=== PATIENT | male | born 1965 | race Caucasian/White ===

== ENCOUNTER 2017-03-31 00:54 | Emergency (ER) | payer SELFPAY ==
[~2017-03-31] VITALS: Ht 172.7 cm; Wt 72.6 kg
[2017-03-31 01:21] VITALS: BP 147/93
[2017-03-31] MEDS ORDERED: oxyCODONE/APAP (5/325 MG) 1 UDTAB TABLET PO ONE (01:30)
[2017-03-31] MEDS ORDERED: LORAZEPAM 1 MG TABLET PO ONE (01:30)
[2017-03-31] MEDS ORDERED: SULFAMETH/TRIMETH 800/160 MG 1 UDTAB TABLET PO ONE ×2 (01:30→01:47)
[2017-03-31] MEDS ORDERED: LORAZEPAM 1 MG TABLET ONE (01:47)
[2017-03-31] MEDS ORDERED: oxyCODONE/APAP (5/325 MG) 1 UDTAB TABLET ONE (01:47)
== END 2017-03-31 02:20 | disposition home or self-care (01) ==
LOC: ER 00:57
DX: L03.113 Cellulitis of right upper limb (principal); L03.114 Cellulitis of left upper limb; F15.10 Other stimulant abuse, uncomplicated; G47.00 Insomnia, unspecified
CPT/HCPCS: A4606; Z7610

== ENCOUNTER 2017-04-21 08:07 | Emergency (ER) | payer SELFPAY ==
[~2017-04-21] VITALS: Ht 170.2 cm; Wt 77.1 kg
--- NOTE | 2017-04-21 08:14 | NUR ---
ABRAMS TO TRIAGE BUT NO ANSWER
--- NOTE | 2017-04-21 08:32 | NUR ---
Called to triage, but no answer
--- NOTE | 2017-04-21 08:47 | NUR ---
STILL NOT IN WAITING ROOM
--- NOTE | 2017-04-21 08:54 | NUR ---
PATIET STILL NOT IN WAITING ROOM
[2017-04-21 08:57] VITALS: BP 148/106
--- NOTE | 2017-04-21 09:23 | NUR ---
PT REC;D TO ER C/O ACID REFLUV AWAITING EVALUATION BY ER PROVIDER.
== END 2017-04-21 09:38 | disposition left against medical advice (07) ==
LOC: ER 08:09
DX: Z53.21 Procedure and treatment not carried out due to patient leaving prior to being seen by health care provider (principal)
CPT/HCPCS: A4606; Z7610

== ENCOUNTER 2018-01-06 23:32 | Inpatient (IN) | payer OTHER ==
[~2018-01-06] VITALS: Ht 165.1 cm; Wt 64.0 kg
--- NOTE | 2018-01-06 23:50 | NUR ---
PT BIB RA AND PAM HAYNES [employer] FOR OK TO BOOK. PT IS YELLING AND C/O LEG AND KNEE PAIN. PT WENT TO BED #6 AND WAS HANDCUFFED TO THE BED. PT IS IN CUSTODY WITH PAM FLORES.
[2018-01-07] MEDS ORDERED: LORAZEPAM INJ 2 MG/ML VIAL IVP ONE
[2018-01-07] MEDS ORDERED: PANTOPRAZOLE 80 MG in IV NS 0.9% 500 ML IV PRN ×2
[2018-01-07] MEDS ORDERED: IV NS 0.9% 1,000 ML BAG IV ONE
[2018-01-07] MEDS ORDERED: PANTOPRAZOLE 40 MG VIAL IV ONE
[2018-01-07] MEDS ORDERED: PANTOPRAZOLE 40 MG VIAL ONE (00:17)
[2018-01-07] MEDS ORDERED: LORAZEPAM INJ 2 MG/ML VIAL ONE (00:17)
--- NOTE | 2018-01-07 00:25 | NUR ---
PT AMBULATED TO THE BATHROOM IN ROOM #6 AND A URINE SAMPLE WAS OBTAINED. PT RETURNED TO BED AND WAS HANDCUFFED TO THE BED.
[2018-01-07] MEDS ORDERED: ONDANSETRON HCL/PF 4 MG/2 ML VIAL IV ONE (00:30)
--- NOTE | 2018-01-07 00:30 | NUR ---
IV STARTED AND BLOOD DRAWN.
[2018-01-07] MEDS ORDERED: ONDANSETRON HCL/PF 4 MG/2 ML VIAL ONE (00:52)
--- NOTE | 2018-01-07 00:59 | NUR ---
PT PLACED ON 2L O2 VIA NC. PT SATURATING AT 97%.
[2018-01-07 01:01] LABS: APPEARANCE,URINE CLEAR (CLEAR); BASOPHILS # (AUTO) 0.1 /CMM (0.0-0.2); BASOPHILS % (AUTO) 0.5 % (0.0-2.0); BILIRUBIN,URINE NEGATIVE (NEGATIVE); BLOOD, URINE TRACE Ery/uL (NEGATIVE); COLOR,URINE YELLOW (YELLOW); EOSINOPHILS % (AUTO) 1.6 % (0.0-6.0); HEMATOCRIT 45 % (39-51); HEMOGLOBIN 15.1 g/dL (13.5-17.5); KETONES,URINE NEGATIVE (NEGATIVE); LEUKOCYTE ESTERASE ,URINE NEGATIVE (NEGATIVE); LYMPHOCYTES # (AUTO) 2.7 /CMM (0.8-4.8); LYMPHOCYTES % (AUTO) 26.9 % (20.0-44.0); MEAN CORPUSCULAR HGB CONC 33 g/dl (31.0-36.0); MEAN CORPUSCULAR VOLUME 81 fL (80-96); MONOCYTES # (AUTO) 0.6 /CMM (0.1-1.30); MONOCYTES % (AUTO) 5.7 % (2.0-12.0); NEUTROPHILS # (AUTO) 6.6 /CMM (1.8-8.9); NEUTROPHILS % (AUTO) 65.3 % (43.0-81.0); NITRITE, URINE NEGATIVE (NEGATIVE); PLATELET COUNT (AUTO) 302 /CMM (150-450); PROTEIN,URINE NEGATIVE (NEGATIVE); RDW COEFFICIENT OF VARIATION 17.9 (11.5-15.0); RED BLOOD CELL COUNT(AUTO) 5.56 MIL/uL (4.5-6.0); UGLUCOSE NEGATIVE (NEGATIVE); UROBILINOGEN,URINE 0.2 EU/dL (0.2); WHITE BLOOD COUNT (AUTO) 10.1 K/uL (4.3-11.0)
[2018-01-07 01:11] LABS: CALCIUM, SERUM 8.6 mg/dL (8.5-10.1); CREATININE 0.7 mg/dL (0.6-1.3); POTASSIUM 3.4 mmol/L (3.5-5.1)
[2018-01-07 01:15] LABS: RBC,URINE 0-2 /HPF (0-2)
[2018-01-07 01:16] LABS: BACTERIA,URINE None seen /HPF (None Seen); SQUAMOUS EPITHELIAL CELL,UR Rare /HPF (None Seen); WBC,URINE 0-2 /HPF (0-3)
[2018-01-07 01:23] LABS: ALBUMIN 3.9 g/dL (3.4-5.0); BILIRUBIN,DIRECT 0.1 mg/dL (0.0-0.2); BILIRUBIN,TOTAL 0.2 mg/dL (0.2-1.0); TOTAL PROTEIN, SERUM 8.9 g/dL (6.4-8.2)
[2018-01-07 01:24] LABS: SALICYLATE 1.7 mg/dL (2.8-20.0)
[2018-01-07] MEDS ORDERED: PANTOPRAZOLE 80 MG in IV NS 0.9% 500 ML IV STA (01:31)
[2018-01-07] MEDS ORDERED: IV NS 0.9% 1,000 ML IV PRN (01:40)
--- NOTE | 2018-01-07 01:57 | NUR ---
REPORT GIVEN TO LYNSEY/TOSHIAG ON BEHALF OF PRIMARY NURSE CESAR.
--- NOTE | 2018-01-07 01:58 | NUR ---
PAM GRAY [employer] AT THE BEDSIDE FOR FINGER PRINTING.
[2018-01-07] MEDS ORDERED: MAGNESIUM HYDROXIDE 30 ML UDC PO PRN (02:00)
[2018-01-07] MEDS ORDERED: Z GUARD REMEDY 2 OZ OINT TP PRN (02:00)
[2018-01-07] MEDS ORDERED: ONDANSETRON HCL/PF 4 MG/2 ML VIAL IVP PRN (02:00)
[2018-01-07] MEDS ORDERED: MAG HYDROX/AL HYDROX/SIMETH 30 ML UDC PO PRN (02:00)
[2018-01-07] MEDS ORDERED: Folic acid 1 MG in IV D5W 50 ML IV SCH (02:00)
[2018-01-07] MEDS ORDERED: Thiamine 100 MG in IV D5W 50 ML IV SCH (02:00)
[2018-01-07] MEDS ORDERED: HYDROCODONE/APAP 5/325MG 1 EACH TABLET PO PRN (02:00)
[2018-01-07] MEDS ORDERED: ZOLPIDEM TARTRATE 5 MG TABLET PO PRN (02:00)
--- NOTE | 2018-01-07 02:10 | NUR ---
TELE/RN OPENING NOTES PT ARRIVED TO UNIT VIA GURNEY ACCOMPANIED BY 2 [employer] OFFICERS. PT AWAKE, AGITATED BECAUSE HE NEEDS TO URINATE. URINAL PROVIDED AND CLEAR YELLOW URINE NOTED. BILATERAL ARMS HANDCUFFED TO THE BED. PLACED ON TELE MONITOR SHOWING SINUS RHYTHM WITH HR 85. IV TO RIGHT HAND RUNNING PROTONIX DRIP AT 50ML/HR. EYES CLOSED AND REFUSING TO ANSWER ASSESSMENT QUESTIONS AT THIS TIME. BED IN LOW/LOCKED POSITION WITH CALL LIGHT IN REACH. SIDE RAILS UPX2. WILL CONTINUE TO MONITOR
[2018-01-07 02:30] VITALS: BP 130/80
[2018-01-07] MEDS ORDERED: Thiamine 100 MG/ML VIAL ONE (02:52)
[2018-01-07] MEDS ORDERED: Folic acid 1 MG/0.2 ML VIAL ONE (02:53)
--- NOTE | 2018-01-07 03:00 | NUR ---
TELE/RN NOTES IV INSERTED TO LAC #22, GOOD BLOOD RETURN NOTED. ATTEMPTED X2. CONNECTED TO NS TO RUN AT 75ML/HR. THIAMINE AND FOLIC ACID ORDERED. WILL ADMINISTER.
[2018-01-07 04:00] VITALS: BP 107/80
[2018-01-07 06:58] LABS: BASOPHILS % (AUTO) 0.6 % (0.0-2.0); HEMATOCRIT 40 % (39-51); HEMOGLOBIN 13.2 g/dL (13.5-17.5); LYMPHOCYTES # (AUTO) 2.1 /CMM (0.8-4.8); LYMPHOCYTES % (AUTO) 27.5 % (20.0-44.0); MEAN CORPUSCULAR HGB CONC 33 g/dl (31.0-36.0); MEAN CORPUSCULAR VOLUME 82 fL (80-96); MONOCYTES # (AUTO) 0.7 /CMM (0.1-1.30); MONOCYTES % (AUTO) 9.3 % (2.0-12.0); NEUTROPHILS # (AUTO) 4.7 /CMM (1.8-8.9); NEUTROPHILS % (AUTO) 60.6 % (43.0-81.0); PLATELET COUNT (AUTO) 256 /CMM (150-450); RDW COEFFICIENT OF VARIATION 18.2 (11.5-15.0); RED BLOOD CELL COUNT(AUTO) 4.84 MIL/uL (4.5-6.0); WHITE BLOOD COUNT (AUTO) 7.7 K/uL (4.3-11.0)
--- NOTE | 2018-01-07 07:30 | NUR ---
RN MS NOTES PT IN BED, ASLEEP, NO SIGN OF PAIN OR DISTRESS, EASY TO AROUSE, NO FACIAL GRIMACING, RESPIRATIONS NORMAL AND NOT LABORED, IV FLUIDS INFUSING WELL, IN CUSTODY, 2 POLICE OFFICERS IN THE ROOM, WITH HANDCUFFS TO BOTH HANDS, NO COMPLAINT AT THIS TIME.
[2018-01-07 07:31] LABS: ALBUMIN 3.2 g/dL (3.4-5.0); BILIRUBIN,TOTAL 0.2 mg/dL (0.2-1.0); CALCIUM, SERUM 7.7 mg/dL (8.5-10.1); CREATININE 0.5 mg/dL (0.6-1.3); POTASSIUM 3.5 mmol/L (3.5-5.1); TOTAL PROTEIN, SERUM 7.1 g/dL (6.4-8.2)
--- NOTE | 2018-01-07 07:53 | NUR ---
TELE/RN CLOSING NOTES PT IN BED, ASLEEP, AROUSABLE TO NAME. ON 2L O2 VIA NC,BREATHING EVEN AND UNLABORED. LAW ENFORCEMENT AT BEDSIDE. BILATERAL WRISTS HANDCUFFED TO BED. EXTREMITIES WITH GOOD CIRCULATION. IV TO RIGHT HAND RUNNING PROTONIX AT 50ML/HR. IV TO LAC RUNNING NS@ 75ML/HR. PT HAD ONE EPISODE OF AGITATION UPON ADMISSION, BUT REMAINED CALM THROUGHOUT SHIFT. BED IN LOW/LOCKED POSITION WITH CALL LIGHT IN REACH. SIDE RAILS UPX2. ENDORSED TO DAY SHIFT ALESSIA THOMPSON. Addendum: 01/07/18 at 0802 by MARILEE GODOY RN TELE MONITOR SINUS RHYTHM WITH HR 85
[2018-01-07 08:00] VITALS: BP 107/73
[2018-01-07] MEDS ORDERED: PANTOPRAZOLE 40 MG VIAL IV SCH (09:00)
[2018-01-07] MEDS ORDERED: POTASSIUM CHLORIDE 20 MEQ TAB.PRT.SR PO SCH (09:30)
--- NOTE | 2018-01-07 11:32 | NUR ---
RN MS NOTES PT IN BED, ASLEEP, EASY TO AROUSE, ALERT AND VERBALLY RESPONSIVE, NO COMPLAINT OF PAIN, RESPIRATIONS NORMAL, IV FLUIDS INFUSING WELL, IN CUSTODY, CALL LIGHT WITHIN REACH, NEEDS ATTENDED.
[2018-01-07] MEDS ORDERED: CHLORDIAZEPOXIDE HCL 25 MG CAPSULE PO SCH (13:00)
[2018-01-07 13:45] LABS: BASOPHILS % (AUTO) 0.6 % (0.0-2.0); EOSINOPHILS % (AUTO) 1.3 % (0.0-6.0); HEMATOCRIT 39 % (39-51); HEMOGLOBIN 12.8 g/dL (13.5-17.5); LYMPHOCYTES # (AUTO) 1.5 /CMM (0.8-4.8); LYMPHOCYTES % (AUTO) 22.4 % (20.0-44.0); MEAN CORPUSCULAR HGB CONC 33 g/dl (31.0-36.0); MEAN CORPUSCULAR VOLUME 82 fL (80-96); MONOCYTES # (AUTO) 0.5 /CMM (0.1-1.30); MONOCYTES % (AUTO) 8.4 % (2.0-12.0); NEUTROPHILS # (AUTO) 4.4 /CMM (1.8-8.9); NEUTROPHILS % (AUTO) 67.3 % (43.0-81.0); PLATELET COUNT (AUTO) 263 /CMM (150-450); RED BLOOD CELL COUNT(AUTO) 4.73 MIL/uL (4.5-6.0); WHITE BLOOD COUNT (AUTO) 6.5 K/uL (4.3-11.0)
[2018-01-07 16:00] VITALS: BP 115/88
[2018-01-07] MEDS ORDERED: THIA100T13 PO (16:43)
[2018-01-07] MEDS ORDERED: CHLO25CA22 PO (16:43)
[2018-01-07] MEDS ORDERED: FOLI1TAB16 PO (16:43)
--- NOTE | 2018-01-07 17:46 | NUR ---
Patient is with [employer] custody. He is ambulatory and independent with adl's. Patient will be dc back to [employer] custody. Addendum: 01/07/18 at 1746 by DOLORES SALINAS RN Amended: Links added.
--- NOTE | 2018-01-07 18:10 | NUR ---
RN MS NOTES PT IN BED, ASLEEP, EASY TO AROUSE. DENIES PAIN, NOT IN DISTRESS, CALL LIGHT WITHIN REACH, IN POLICE CUSTODY, NO VOMITING OR DIARRHEA NOTED, SEEN BY KEZIA ELECTRO MECHANIC, DISCHARGE ORDER GIVEN, DISCHARGE AND MEDICATION INSTRUCTIONS PROVIDED TO PT, VERBALIZED UNDERSTANDING, PRESCRIPTION PROVIDED TO PT, BELONGINGS ACCOUNTED FOR, PT AMBULATES WITH STEADY GAIT, ASSISTED BY 2 POLICE OFFICERS, LEFT IN STABLE CONDITION.
[2018-01-08] MEDS ORDERED: THIAMINE HCL 100 MG TABLET PO SCH (09:00)
[2018-01-08] MEDS ORDERED: FOLIC ACID 1 MG TABLET PO SCH (09:00)
== END 2018-01-07 18:12 | DRG 914 ==
LOC: ER 23:35 → TELE 01-07 01:50 → MED 01-07 08:56
PROVIDERS: ADMIT Internal Medicine; ATTEND Internal Medicine
DX: S09.93XA Unspecified injury of face, initial encounter (principal); K92.0 Hematemesis; E44.1 Mild protein-calorie malnutrition; E83.51 Hypocalcemia; F10.129 Alcohol abuse with intoxication, unspecified; F20.9 Schizophrenia, unspecified; F32.9 Major depressive disorder, single episode, unspecified; F41.9 Anxiety disorder, unspecified; Z91.14 Patient's other noncompliance with medication regimen; F15.10 Other stimulant abuse, uncomplicated; E87.6 Hypokalemia; E16.2 Hypoglycemia, unspecified; Y90.7 Blood alcohol level of 200-239 mg/100 ml; Y04.2XXA Assault by strike against or bumped into by another person, initial encounter; Y92.009 Unspecified place in unspecified non-institutional (private) residence as the place of occurrence of the external cause; F17.200 Nicotine dependence, unspecified, uncomplicated
CPT/HCPCS: 36415; 80048-TC; 80053-TC; 80076-TC; 80305; 81000-TC; 83690-TC; 85025-TC; 87081-TC; A4606; C9113; G0480; J2060; J2405; J3411; J3490; J7030; J7040; J7060; Z7610

== ENCOUNTER 2019-05-28 05:33 | Emergency (ER) | payer OTHER ==
[~2019-05-28] VITALS: Ht 170.2 cm; Wt 86.6 kg
[~2019-05-28 05:33] MED LIST: CHLO25CA22 PO; FOLI1TAB16 PO; THIA100T13 PO
[2019-05-28 05:38] VITALS: BP 133/100
--- NOTE | 2019-05-28 05:43 | NUR ---
BIBA AND [employer] (ON CUSTODY) FOR C/O ANXIETY AND ABD PAIN. PT WAS PLACED ON A MONITOR . VSS
--- NOTE | 2019-05-28 05:47 | NUR ---
per officer pt is not on custody anymore
--- NOTE | 2019-05-28 06:43 | NUR ---
Patient discharged to home in stable condition. Written and verbal after care instructions given. Patient verbalizes understanding of instruction.
== END 2019-05-28 06:44 | disposition home or self-care (01) ==
LOC: ER 05:33
DX: F41.9 Anxiety disorder, unspecified (principal); F32.9 Major depressive disorder, single episode, unspecified; F20.9 Schizophrenia, unspecified; F10.10 Alcohol abuse, uncomplicated; Y90.9 Presence of alcohol in blood, level not specified

== ENCOUNTER 2019-05-30 14:28 | Emergency (ER) | payer OTHER ==
[~2019-05-30] VITALS: Ht 162.6 cm; Wt 72.6 kg
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
[2019-05-30] MEDS ORDERED: IBUPROFEN 400 MG TABLET ONE (14:50)
[2019-05-30] MEDS ORDERED: IBUPROFEN 400 MG TABLET PO ONE (15:00)
--- NOTE | 2019-05-30 15:17 | NUR ---
Patient given written and verbal discharge instructions. Patient verbalizes understanding of instructions. Patient is ambulatory with steady gait. Refuses offer of halfway placement. Patient given list of available shelters in surrounding area. Patient in proper clothing upon discharge, name band removed.
[2019-05-30 15:18] VITALS: BP 126/82
== END 2019-05-30 15:19 | disposition home or self-care (01) ==
LOC: ER 14:32
DX: S70.11XA Contusion of right thigh, initial encounter (principal); F41.9 Anxiety disorder, unspecified; F32.9 Major depressive disorder, single episode, unspecified; F20.9 Schizophrenia, unspecified; F10.10 Alcohol abuse, uncomplicated; F17.200 Nicotine dependence, unspecified, uncomplicated; Y90.9 Presence of alcohol in blood, level not specified; Z60.2 Problems related to living alone; W22.8XXA Striking against or struck by other objects, initial encounter; Y93.55 Activity, bike riding; Y92.480 Sidewalk as the place of occurrence of the external cause; Y99.8 Other external cause status
CPT/HCPCS: 73552

== ENCOUNTER 2020-02-20 02:12 | Inpatient (IN) | payer OTHER ==
[~2020-02-20] VITALS: Ht 157.5 cm; Wt 60.8 kg
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
--- NOTE | 2020-02-20 02:15 | NUR ---
SWELLING AND REDNESS NOTED ON THE R 4TH DIGIT.
[2020-02-20] MEDS ORDERED: PIPERACILLIN /TAZOBACTAM 3.375 G VIAL IV ONE (02:18)
[2020-02-20] MEDS ORDERED: VANCOMYCIN 1 GM VIAL ONE (02:18)
[2020-02-20] MEDS ORDERED: MORPHINE SULFATE INJ 4 MG/ML DISP.SYRIN ONE (02:19)
--- NOTE | 2020-02-20 02:28 | NUR ---
BD SPECIAL EDUCATION TEACHER AT BEDSIDE FOR LABS.
[2020-02-20] MEDS ORDERED: VANCOMYCIN 1 GM in IV D5W 250 ML IV ONE (02:30)
[2020-02-20] MEDS ORDERED: PIPERACILLIN /TAZOBACTAM 3.375 G in IV D5W 50 ML IV ONE (02:30)
[2020-02-20] MEDS ORDERED: MORPHINE SULFATE INJ 2 MG/ML DISP.SYRIN IV ONE (02:30)
--- NOTE | 2020-02-20 02:32 | NUR ---
XRAY AT BEDSIDE
[2020-02-20 02:40] LABS: BASOPHILS # (AUTO) 0.2 /CMM (0.0-0.2); EOSINOPHILS % (AUTO) 0.7 % (0.0-6.0); HEMATOCRIT 48 % (39-51); HEMOGLOBIN 16.2 g/dL (13.5-17.5); LYMPHOCYTES # (AUTO) 0.6 /CMM (0.8-4.8); LYMPHOCYTES % (AUTO) 3.6 % (20.0-44.0); MEAN CORPUSCULAR HGB CONC 34 g/dl (31.0-36.0); MEAN CORPUSCULAR VOLUME 90 fL (80-96); MONOCYTES # (AUTO) 0.5 /CMM (0.1-1.30); MONOCYTES % (AUTO) 2.9 % (2.0-12.0); NEUTROPHILS # (AUTO) 14.4 /CMM (1.8-8.9); NEUTROPHILS % (AUTO) 91.8 % (43.0-81.0); PLATELET COUNT (AUTO) 276 /CMM (150-450); RED BLOOD CELL COUNT(AUTO) 5.29 MIL/uL (4.5-6.0); WHITE BLOOD COUNT (AUTO) 15.7 K/uL (4.3-11.0)
[2020-02-20 02:51] LABS: CALCIUM, SERUM 9.1 mg/dL (8.5-10.1); CARBON DIOXIDE 26 mmol/L (21-32); CHLORIDE 99 mmol/L (98-107); CREATININE 0.9 mg/dL (0.6-1.3); GLUCOSE 87 mg/dL (74-106); POTASSIUM 3.5 mmol/L (3.5-5.1); SODIUM SERUM 135 mmol/L (136-145); UREA NITROGEN, BLOOD 15 mg/dL (7-18)
[2020-02-20 02:56] LABS: ALANINE AMINOTRANSFERASE 23 U/L (12-78); ALBUMIN 4.1 g/dL (3.4-5.0); ALKALINE PHOSPHATASE 127 U/L (46-116); ASPARTATE AMINOTRANSFERASE 24 U/L (15-37); BILIRUBIN,DIRECT 0.1 mg/dL (0.0-0.2); BILIRUBIN,TOTAL 0.6 mg/dL (0.2-1.0); TOTAL PROTEIN, SERUM 8.8 g/dL (6.4-8.2)
[2020-02-20] MEDS ORDERED: IV NS 0.9% 1,000 ML BAG IV ONE (03:00)
--- NOTE | 2020-02-20 03:45 | NUR ---
CALLED LEANDRO FOR REPORT
--- NOTE | 2020-02-20 03:55 | NUR ---
PT ASSIGNED TO BED 207-2
--- NOTE | 2020-02-20 04:08 | NUR ---
REPORT GIVEN TO ALESSIA DE ANDA
--- NOTE | 2020-02-20 04:08 | NUR ---
PT RESTING IN BED COMFORTABLY. VSS. NO ACUTE DISTRESS NOTED.
--- NOTE | 2020-02-20 04:20 | NUR ---
DR. MORIN ON THE PHONE WITH HOSPITALIST, FRANCISCO WAGNER FURNITURE ASSEMBLER
--- NOTE | 2020-02-20 04:27 | NUR ---
DR. MORIN ON THE PHONE WITH DR. ADORNO (ORTHO PATIENT REGISTRAR)
[2020-02-20] MEDS ORDERED: ZOLPIDEM TARTRATE 5 MG TABLET PO PRN (04:30)
[2020-02-20] MEDS ORDERED: ACETAMINOPHEN 325 MG TABLET PO PRN (04:30)
[2020-02-20] MEDS ORDERED: MAGNESIUM HYDROXIDE 30 ML UDC PO PRN (04:30)
[2020-02-20] MEDS ORDERED: Z GUARD REMEDY 2 OZ OINT TP PRN (04:30)
[2020-02-20] MEDS ORDERED: ONDANSETRON HCL/PF 4 MG/2 ML VIAL IVP PRN (04:30)
[2020-02-20] MEDS ORDERED: MORPHINE SULFATE INJ 2 MG/ML DISP.SYRIN IV PRN (04:30)
[2020-02-20] MEDS ORDERED: MAG HYDROX/AL HYDROX/SIMETH 30 ML UDC PO PRN (04:30)
--- NOTE | 2020-02-20 04:40 | NUR ---
Received from the ER alert and orientated. will only answer some of the questions asked otherwisw he will answer, I don't Know" continent uses the bathroom. pain a 10 in the right hand facial grimacing. tatoes over the body. photo take of the right hand scab and swollen hand. elbows brown patient not with good hygeine
[2020-02-20] MEDS: IV NS 0.9% 1,000 ML IV PRN (05:08)
[2020-02-20 06:11] VITALS: BP 134/87
--- NOTE | 2020-02-20 07:54 | NUR ---
MS RN OPENING NOTE PATIENT IN BED RESTING COMFORTABLY. PATIENT IN NO ACUTE DISTRESS. NO SOB NOTED. PATIENT BREATHING IS EVEN AND UNLABORED. PATIENT STATES NO PAIN AT THIS TIME. PATIENT SAFETY PRECAUTIONS IN PLACE. PATIENT BED IS LOCKED AND IN LOWEST POSITION. CALL LIGHT WITHIN REACH. WILL CONTINUE TO MONITOR.
[2020-02-20 08:00] VITALS: BP 131/82
[2020-02-20] MEDS: AMOX/CLAVULANATE 875 MG TABLET PO SCH ×2 (08:38→20:32)
[2020-02-20 16:00] VITALS: BP 115/70
--- NOTE | 2020-02-20 16:07 | NUR ---
MS RN NOTE PATIENT TEMPERATURE 100.3F.TYLENOL PRN ORDERED TO BE GIVEN. WILL IMPLEMENT COOLING MEASURES.
--- NOTE | 2020-02-20 18:53 | NUR ---
MS RN CLOSING NOTE PATIENT IN BED RESTING COMFORTABLY. PATIENT IN NO ACUTE DISTRESS. NO SOB NOTED. PATIENT BREATHING IS EVEN AND UNLABORED. PATIENT STATES NO PAIN AT THIS TIME. PATIENT KEPT CLEAN, DRY AND COMFORTABLE THROUGHOUT SHIFT. NEEDS AND CONCERNS ADDRESSED. PATIENT SAFETY PRECAUTIONS IN PLACE. PATIENT BED IS LOCKED AND IN LOWEST POSITION. CALL LIGHT WITHIN REACH. WILL ENDORSE CARE TO PM SHIFT FOR DONNA.
--- NOTE | 2020-02-20 19:31 | NUR ---
Recieved patient in his bed asleep, when name spoken opened eyes and smiled. right hand slightly swollen, up on a pillow no drainage.
[2020-02-20 19:40] VITALS: BP 106/72
[2020-02-20 20:07] VITALS: BP 106/72
[2020-02-21] MEDS: IV NS 0.9% 1,000 ML IV PRN ×2 (01:01→16:56)
--- NOTE | 2020-02-21 04:47 | NUR ---
ENDING NOTES; alert and orientated but not forgetful and shuts his eyes when a question is asked at times. bedalarm used at all times d/t he attempts to get oob to go to the bathroom w/o calling the nurse for assist. his gait is steady. right hand elevated on a pillow, hand is warm. no fever this 12 hours
[2020-02-21 07:12] LABS: BASOPHILS # (AUTO) 0.1 /CMM (0.0-0.2); BASOPHILS % (AUTO) 0.6 % (0.0-2.0); EOSINOPHILS % (AUTO) 0.4 % (0.0-6.0); HEMATOCRIT 44 % (39-51); HEMOGLOBIN 14.8 g/dL (13.5-17.5); LYMPHOCYTES # (AUTO) 1.3 /CMM (0.8-4.8); LYMPHOCYTES % (AUTO) 13.2 % (20.0-44.0); MEAN CORPUSCULAR HGB CONC 34 g/dl (31.0-36.0); MEAN CORPUSCULAR VOLUME 91 fL (80-96); MONOCYTES # (AUTO) 0.9 /CMM (0.1-1.30); MONOCYTES % (AUTO) 9.2 % (2.0-12.0); NEUTROPHILS # (AUTO) 7.8 /CMM (1.8-8.9); NEUTROPHILS % (AUTO) 76.6 % (43.0-81.0); PLATELET COUNT (AUTO) 211 /CMM (150-450); RED BLOOD CELL COUNT(AUTO) 4.81 MIL/uL (4.5-6.0); WHITE BLOOD COUNT (AUTO) 10.2 K/uL (4.3-11.0)
[2020-02-21 07:35] LABS: CALCIUM, SERUM 8.2 mg/dL (8.5-10.1); CREATININE 0.6 mg/dL (0.6-1.3); POTASSIUM 3.6 mmol/L (3.5-5.1)
--- NOTE | 2020-02-21 08:08 | NUR ---
MS RN NOTE PATIENT TEMPERATURE 99.0F. IMPLEMENTED COOLING MEASURES.
[2020-02-21] MEDS: AMOX/CLAVULANATE 875 MG TABLET PO SCH ×2 (08:21→21:18)
[2020-02-21 08:52] VITALS: BP 124/71
--- NOTE | 2020-02-21 09:00 | NUR ---
MS RN NOTE PATIENT TEMPERATURE IS 98.8F. WILL CONTINUE TO MONITOR.
[2020-02-21] MEDS ORDERED: K PHOS NEUTRAL 250 MG TABLET PO ONE (12:30)
[2020-02-21 16:09] VITALS: BP 113/68
--- NOTE | 2020-02-21 16:41 | NUR ---
MS RN NOTE INFORMED AND MADE AWARE TO DR. ADORNO FOR CONSULT. PER DR. ADORNO WILL SEE PATIENT TOMORROW MORNING.
[2020-02-21] MEDS: HYDROCODONE/APAP 5/325MG 1 EACH TABLET PO PRN (19:36)
--- NOTE | 2020-02-21 19:40 | NUR ---
MS RN OPENING NOTES RECEIVED PATIENT FROM MORNING SHIFT, ALERT AND ORIENTED X 3. VERBALLY RESPONSIVE AND ABLE TO FOLLOW DIRECTIONS. BREATHING REGULAR AND UNLABORED ON ROOM AIR. RIGHT AC G18 IV LINE INTACT AND PATENT, INFUSING WELL WITH NO BLEEDING OR S/S OF INFILTRATION NOTED. DENIES SUICIDAL IDEATION. COMPLAINED OF 7/10 RIGHT 4TH DISTAL PHALANGE PAIN, NON-PHARMACOLOGICAL INTERVENTIONS PROVIDED. BED LOW AND LOCKED ON SEMI FOWLERS POSITION. CALL LIGHT IN REACH. WILL CONTINUE TO MONITOR.
--- NOTE | 2020-02-21 19:45 | NUR ---
MS RN NOTES COMPLAINED OF 7/10 RIGHT 4TH DISTAL PHALANGE PAIN, NORCO 5/325 GIVEN BY MOUTH. NON-PHARMACOLOGICAL INTERVENTIONS PROVIDED. VITAL SIGNS WNL. WILL CONTINUE TO MONITOR.
[2020-02-21 20:00] VITALS: BP 122/70
[2020-02-21 20:10] VITALS: BP 122/70
--- NOTE | 2020-02-22 06:15 | NUR ---
MS RN CLOSING NOTES PATIENT IN BED, ALERT AND ORIENTED X 3. AFEBRILE WITH NO S/S OF DISTRESS OBSERVED. RIGHT AC G18 IV LINE PATENT AND INFUSING WELL. DENIES ANY PAIN/DISCOMFORT AT THIS TIME. BED LOW AND LOCKED ON SEMI FOWLERS POSITION. CALL LIGHT IN REACH. WILL ENDORSE TO MORNING SHIFT FOR DONNA.
--- NOTE | 2020-02-22 07:35 | NUR ---
MS RN NOTES PATIENT IN BED RESTING NO SOB OR ACUTE DISTRESS NOTED. PATIENT ALERT, ORIENTED X 3. BED IN LOW LOCKED POSITION. SAFETY MEASURES IN PLACE. CALL LIGHT WITHIN REACH. WILL CONTINUE TO MONITOR.
[2020-02-22 08:48] VITALS: BP 105/77
[2020-02-22] MEDS: AMOX/CLAVULANATE 875 MG TABLET PO SCH (08:57)
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
[2020-02-22 16:54] VITALS: BP 117/69
[2020-02-22] MEDS: HYDROCODONE/APAP 5/325MG 1 EACH TABLET PO PRN (18:21)
[2020-02-22] MEDS: IV NS 0.9% 1,000 ML IV PRN (18:25)
--- NOTE | 2020-02-22 18:55 | NUR ---
MS RN NOTES PATIENT IN BED RESTING NO SOB OR ACUTE DISTRESS NOTED. ALL DUE MEDICATIONS ADMINISTERED. ALL NEEDS MET. NO ACUTE CHANGES NOTED DURING SHIFT. WILL ENDORSE CARE TO PM SHIFT.
--- NOTE | 2020-02-22 19:30 | NUR ---
MS RN OPENING NOTES RECEIVED PATIENT FROM MORNING SHIFT, ALERT AND ORIENTED X 3. VERBALLY RESPONSIVE AND ABLE TO FOLLOW DIRECTIONS. BREATHING REGULAR AND UNLABORED ON ROOM AIR. RIGHT AC G18 IV LINE INTACT AND PATENT, INFUSING WELL WITH NO BLEEDING OR S/S OF INFILTRATION NOTED. DENIES SUICIDAL IDEATION OR PAIN/DISCOMFORT AT THIS TIME. BED LOW AND LOCKED ON SEMI FOWLERS POSITION. CALL LIGHT IN REACH. WILL CONTINUE TO MONITOR.
[2020-02-22] MEDS: CEFTRIAXONE 2 G in IV D5W 100 ML IV SCH (19:51)
[2020-02-22 20:00] VITALS: BP 105/71
--- NOTE | 2020-02-23 11:02 | NUR ---
COUNTY TAX ASSESSOR contacted Fartun ARDEN Patient Navigator at [facility] [phone] and left her a voicemail message with MS2 contact number to callback, to speak with the pt for a phone intake.
--- NOTE | 2020-02-23 14:21 | NUR ---
HOOKING MACHINE OPERATOR consulted with ALESSIA Suarez and Dr. Agosto and requested for a psychiatric consult due to pt stating he is very depressed. ASHER also received a voicemail from ARDEN Navigator Fartun, at [facility] [phone]. Per Fartun, she completed a phone intake with the pt and was inquiring if pt is having surgery. HOOKING MACHINE OPERATOR contacted Fartun and left her a message informing her, pt is not going to have surgery at this time.
[2020-02-23] MEDS ORDERED: MUPIROCIN OINT 2% 22 GM TUBE TP SCH (14:30)
--- NOTE | 2020-02-23 18:46 | NUR ---
MS RN NOTES PATIENT IN BED RESTING NO SOB OR ACUTE DISTRESS NOTED. NO ACUTE CHANGES NOTED. ALL DUE MEDICATIONS ADMINISTERED. ALL NEEDS MET. PAIN CONTROLLED WITH MEDICATION. WILL ENDORSE CARE TO PM SHIFT.
[2020-02-23] MEDS: HYDROCODONE/APAP 5/325MG 1 EACH TABLET PO PRN (18:53)
[2020-02-23] MEDS: IV NS 0.9% 1,000 ML IV PRN (19:07)
--- NOTE | 2020-02-23 19:15 | NUR ---
RN OPENING NOTES Received patient awake, resting on on bed, watching tv. On RA, no SOB/respiratory distress noted at this time. Patient denies any pain at this time. Kept on bed clean, dry and comfortable. On fall and aspiration precautions. Will continue to monitor accordingly.
[2020-02-23] MEDS: CEFTRIAXONE 2 G in IV D5W 100 ML IV SCH ×2 (19:30→20:17)
[2020-02-23 20:00] VITALS: BP 116/84
[2020-02-23] MEDS: MUPIROCIN OINT 2% 22 GM TUBE TP SCH (20:16)
--- NOTE | 2020-02-24 06:52 | NUR ---
RN CLOSING NOTES Patient asleep, easily awaken. No new complaints made. All nursing needs attended. Due meds given as ordered. Kept on bed clean, dry and comfortable. On fall and aspiration precautions. Endorsed.
--- NOTE | 2020-02-24 07:36 | NUR ---
MS RN OPENING NOTE RECEIVED PATIENT IN BED SLEEPING COMFORTABLY. PATIENT IN NO ACUTE DISTRESS. NO SOB NOTED. PATIENT BREATHING IS EVEN AND UNLABORED. SAFETY PRECAUTIONS IN PLACE. PATIENT BED IS LOCKED AND IN LOWEST POSITION. CALL LIGHT WITHIN REACH. WILL CONTINUE TO MONITOR.
[2020-02-24] MEDS: MUPIROCIN OINT 2% 22 GM TUBE TP SCH ×2 (08:04→20:47)
[2020-02-24] MEDS: HYDROCODONE/APAP 5/325MG 1 EACH TABLET PO PRN ×2 (12:35→19:40)
--- NOTE | 2020-02-24 16:31 | NUR ---
MS RN NOTE FAXED FACESHEET TO PSYCH UNIT FOR DR. DIETZ PSYCHIATRIC CONSULT. FOLLOWED UP AND PAGED TO DR. DIETZ. SPOKE WITH DR. DIETZ AND HE IS MADE AWARE. PER MD WILL COME AND SEE THE PATIENT.
[2020-02-24] MEDS: IV NS 0.9% 1,000 ML IV PRN (17:01)
--- NOTE | 2020-02-24 19:24 | NUR ---
RN OPENING NOTES Received patient awake, resting on bed. On RA, no SOB/respiratory distress noted. Patient denies any discomfort at this time. Kept call light within easy reach. Will continue to monitor accordingly.
[2020-02-24] MEDS: ARIPIPRAZOLE 5 MG TABLET PO SCH (19:38)
[2020-02-24 20:00] VITALS: BP 104/68
[2020-02-24] MEDS ORDERED: LORAZEPAM 1 MG TABLET PO PRN (20:00)
[2020-02-24] MEDS: CEFTRIAXONE 2 G in IV D5W 100 ML IV SCH (20:00)
[2020-02-24 20:56] VITALS: BP 104/68
--- NOTE | 2020-02-25 06:28 | NUR ---
RN CLOSING NOTES Patient asleep, easily awaken. On RA, no respiratory distress noted. With complaints of R hand pain, managed with PRN pain meds as ordered. No new complaints made. All nursing needs attended. Due meds given as ordered. Pt is for possible D/C today. Call light within easy reach. Endorsed.
--- NOTE | 2020-02-25 07:35 | NUR ---
MS/RN OPENING NOTES RECEIVED PATIENT ON BED. PATIENT IS ALERT AND ORIENTED X 3. NO COMPLAINED PAIN AT THIS TIME. NO RESPIRATORY DISTRESS NOTED. IV ACCESS AT RIGHT AC # 20 G PATENT AND INTACT. BED IN LOW POSITION AND LOCKED X2. CALL LIGHT WITHIN REACH. WILL CONTINUE TO MONITOR. Addendum: 02/25/20 at 0740 by BRYN OSCAR RN ERROR
--- NOTE | 2020-02-25 07:40 | NUR ---
MS/RN OPENING NOTES RECEIVED PATIENT ON BED. PATIENT IS ALERT AND ORIENTED X 4. NO COMPLAINED OF PAIN AT THIS TIME. NO RESPIRATORY DISTRESS NOTED. IV ACCESS AT RIGHT AC # 18 G WITH IV FLUID OF 75ML/HR ON AND INFUSING WELL. BED IN LOW POSITION AND LOCKED X2. CALL LIGHT WITHIN REACH. WILL CONTINUE TO MONITOR.
[2020-02-25 07:52] VITALS: BP 117/70
--- NOTE | 2020-02-25 08:39 | NUR ---
STEVE contacted Fartun ARDEN Patient Navigator at [facility] [phone] and inquired about whether or not the pt was accepted to their facility and she stated that the pt would need to be taken off of his IV before he can be considered for admission. STEVE stated that she will attempt to provide her with an answer regarding how much longer the pt will be on his IV.
--- NOTE | 2020-02-25 08:44 | NUR ---
STEVE contacted Fartun, ARDEN Patient Navigator at [facility] [phone] and informed her that she spoke to the Nurse Demetrice who stated that the pt was not on an IV. Fartun then began to inquire about the pts wound care and if that would be something that the pt can take care of on his own. STEVE transferred the call to the unit so that Fartun could speak to the pts nurse in detail regarding the pts current care.
[2020-02-25] MEDS: ARIPIPRAZOLE 5 MG TABLET PO SCH ×2 (08:59→14:35)
[2020-02-25] MEDS ORDERED: VENLAFAXINE XR 75 MG CAP.SR.24H PO SCH (09:00)
[2020-02-25] MEDS: MUPIROCIN OINT 2% 22 GM TUBE TP SCH (09:10)
--- NOTE | 2020-02-25 14:41 | NUR ---
ASHER was informed by case luz marina Gonzáles, that Fartun informed him they do not have a bed available for the pt and they will contact him directly. GREENHOUSE WORKER met with the pt bedside. GREENHOUSE WORKER informed the pt regarding no beds available at [facility] and they will contact him. GREENHOUSE WORKER took pt's cell phone information . GREENHOUSE WORKER provided pt with List of Homeless Resources Related to COVID-19 which include hygiene, food, mental health resources/support services. Pt will be provided with a TAP card. SW contacted Fartun, ARDEN Patient Navigator at [facility] [phone] and left her a voicemail message with pt's phone number for future reference. Hearing Aid Repairer is available for support as needed.
--- NOTE | 2020-02-25 15:57 | NUR ---
MS/RN NOTES PATIENT IS ALERT AND ORIENTED X4. PATIENT DENIES PAIN AT THIS TIME. IN ROOM AIR AND SATURATION OF 99%. RESPIRATION REGULAR AND UNLABORED. PATIENT IN NO APPARENT RESPIRATORY DISTRESS NOTED. SEEN AND EXAMINED BY MD WITH ORDERS MADE AND CARRIED OUT. ALL DUE MEDICATION WAS GIVEN. PATIENT DISCHARGED AT 1520 PATIENT WAS GIVEN DISCHARGED INSTRUCTIONS AND PATIENT VERBALIZED UNDERSTANDING. THE PATIENT LEFT THE HOSPITAL IN STABLE CONDITION. AMBULATORY AND LEFT ALONE, HEATING AND REFRIGERATION INSPECTOR GAVE A TAP CARD. Addendum: 02/25/20 at 1611 by BRYN OSCAR RN ERROR
--- NOTE | 2020-02-25 16:11 | NUR ---
MS/RN NOTES PATIENT IS ALERT AND ORIENTED X4. PATIENT DENIES PAIN AT THIS TIME. IN ROOM AIR AND SATURATION OF 99%. RESPIRATION REGULAR AND UNLABORED. PATIENT IN NO APPARENT RESPIRATORY DISTRESS NOTED. SEEN AND EXAMINED BY MD WITH ORDERS MADE AND CARRIED OUT. ALL DUE MEDICATION WAS GIVEN. PATIENT DISCHARGED AT 1446 PATIENT WAS GIVEN DISCHARGED INSTRUCTIONS AND PATIENT VERBALIZED UNDERSTANDING. THE PATIENT LEFT THE HOSPITAL IN STABLE CONDITION. AMBULATORY AND LEFT ALONE, DIRECTOR BIOLOGY GAVE A TAP CARD.
== END 2020-02-25 14:46 | DRG 720 ==
LOC: ER 02:12 → MEDSG2 03:57
PROVIDERS: ADMIT Internal Medicine; ATTEND Nurse Practitioner Acute Care
DX: A40.9 Streptococcal sepsis, unspecified (principal); F33.3 Major depressive disorder, recurrent, severe with psychotic symptoms; S62.634A Displaced fracture of distal phalanx of right ring finger, initial encounter for closed fracture; F17.210 Nicotine dependence, cigarettes, uncomplicated; W18.30XA Fall on same level, unspecified, initial encounter; Y92.89 Other specified places as the place of occurrence of the external cause; F41.9 Anxiety disorder, unspecified; Z79.899 Other long term (current) drug therapy; L03.011 Cellulitis of right finger; F10.10 Alcohol abuse, uncomplicated; F15.11 Other stimulant abuse, in remission; Y90.9 Presence of alcohol in blood, level not specified; Z59.0 Homelessness; Z98.1 Arthrodesis status
CPT/HCPCS: 36415; 73130-TC; 80048-TC; 80061-TC; 80076-TC; 83605-TC; 83735-TC; 84100-TC; 84484-TC; 85025-TC; 85730-TC; 87040-TC; 87081-TC; 87186-TC; 93307-TC; 97535-TC; G0378; J0696; J2270; J2543; J3370; J7030; J7060

== ENCOUNTER 2020-06-05 01:19 | Emergency (ER) | payer OTHER ==
[2020-06-05] MEDS ORDERED: IV PREMIX D5 1/2NS + KCL 1,000 ML IV ONE ×2 (01:42→02:02)
[2020-06-05] MEDS ORDERED: ONDANSETRON HCL/PF 4 MG/2 ML VIAL ONE (01:53)
[2020-06-05] MEDS ORDERED: PIPERACILLIN /TAZOBACTAM 3.375 G VIAL IV ONE (01:53)
[2020-06-05] MEDS ORDERED: HYDROMORPHONE 1 MG/1 ML DISP.SYRIN ONE (01:54)
[2020-06-05] MEDS ORDERED: DEXAMETHASONE SOD PHOSPHATE 10 MG/ML VIAL ONE (01:58)
[2020-06-05] MEDS ORDERED: ONDANSETRON HCL/PF 4 MG/2 ML VIAL IVP ONE (02:00)
[2020-06-05] MEDS ORDERED: PIPERACILLIN /TAZOBACTAM 3.375 G in IV D5W 50 ML IV ONE (02:00)
[2020-06-05] MEDS ORDERED: DEXAMETHASONE SOD PHOSPHATE 10 MG/ML VIAL IV ONE (02:00)
[2020-06-05] MEDS ORDERED: HYDROMORPHONE 1 MG/1 ML DISP.SYRIN IV ONE (02:00)
== END 2020-06-05 07:25 | disposition left against medical advice (07) ==
DX: J36 Peritonsillar abscess (principal); F20.9 Schizophrenia, unspecified; Z59.0 Homelessness; Z20.828 Contact with and (suspected) exposure to other viral communicable diseases
CPT/HCPCS: 36415; 80048; 80076; 85025; 85730; 86850; 87040 ×2; 87426; 96365; 96366; 96368; 96375; 99285; C9803; J1100; J1170; J2405; J2543; J3490; J7060

== ENCOUNTER 2021-03-09 19:31 | Emergency (ER) | payer OTHER ==
[~2021-03-09] VITALS: Ht 162.6 cm; Wt 68.0 kg
[2021-03-09] MEDS ORDERED: ACETAMINOPHEN 325 MG TABLET ONE (19:51)
[2021-03-09] MEDS ORDERED: LIDOCAINE 0.5%-EPI 1:200,000 50 ML VIAL ONE (19:51)
[2021-03-09] MEDS ORDERED: TDAP [DIPH/PERTUSSIS/TET] 0.5 ML VIAL IM ONE (20:00)
[2021-03-09] MEDS ORDERED: ACETAMINOPHEN 325 MG TABLET PO ONE (20:00)
[2021-03-09] MEDS ORDERED: LIDOCAINE 0.5%-EPI 1:200,000 50 ML VIAL TP ONE (20:00)
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
--- NOTE | 2021-03-09 20:55 | NUR ---
Patient given written and verbal discharge instructions. Patient verbalizes understanding of instructions. Patient is ambulatory with steady gait. Refuses offer of halfway placement. Patient given list of available shelters in surrounding area.
[2021-03-09 20:57] VITALS: BP 124/89
== END 2021-03-09 20:57 | disposition home or self-care (01) ==
LOC: ER 19:32
DX: S01.01XA Laceration without foreign body of scalp, initial encounter (principal); F32.9 Major depressive disorder, single episode, unspecified; F17.200 Nicotine dependence, unspecified, uncomplicated; F20.9 Schizophrenia, unspecified; Z59.0 Homelessness; Z60.2 Problems related to living alone; W01.0XXA Fall on same level from slipping, tripping and stumbling without subsequent striking against object, initial encounter; Y93.89 Activity, other specified; Y92.89 Other specified places as the place of occurrence of the external cause; Y99.8 Other external cause status
CPT/HCPCS: 12002; 70450; 99284; A6403; J3490

== ENCOUNTER 2021-03-30 09:33 | Emergency (ER) | payer OTHER ==
[~2021-03-30] VITALS: Ht 165.1 cm; Wt 77.1 kg
--- NOTE | 2021-03-30 09:42 | NUR ---
LAXMI RACayetano "Homeless been complaining of chronic back/abdominal pain" Pt states "want to go voluntary to [facility]. On psych meds NOT taking it". Rates pain 8/. Abdomen soft and non-distended. Will continue to monitor the patient.
[2021-03-30] MEDS ORDERED: HYDROCODONE/APAP 5/325MG TABLET ONE (10:05)
[2021-03-30 10:09] LABS: BASOPHILS % (AUTO) 0.8 % (0.0-2.0); EOSINOPHILS % (AUTO) 3.2 % (0.0-6.0); HEMATOCRIT 41 % (39-51); HEMOGLOBIN 13.8 g/dL (13.5-17.5); LYMPHOCYTES # (AUTO) 1.5 K/uL (0.8-4.8); LYMPHOCYTES % (AUTO) 26.8 % (20.0-44.0); MEAN CORPUSCULAR HGB CONC 34 g/dl (31.0-36.0); MEAN CORPUSCULAR VOLUME 91 fL (80-96); MONOCYTES # (AUTO) 0.5 K/uL (0.1-1.30); MONOCYTES % (AUTO) 8.9 % (2.0-12.0); NEUTROPHILS # (AUTO) 3.4 K/uL (1.8-8.9); NEUTROPHILS % (AUTO) 60.3 % (43.0-81.0); PLATELET COUNT (AUTO) 237 K/uL (150-450); RED BLOOD CELL COUNT(AUTO) 4.47 MIL/uL (4.5-6.0); WHITE BLOOD COUNT (AUTO) 5.6 K/uL (4.3-11.0)
[2021-03-30 10:10] LABS: CALCIUM, SERUM 8.2 mg/dL (8.5-10.1); CARBON DIOXIDE 23 mmol/L (21-32); CHLORIDE 103 mmol/L (98-107); CREATININE 0.7 mg/dL (0.6-1.3); GLUCOSE 109 mg/dL (74-106); POTASSIUM 3.2 mmol/L (3.5-5.1); SODIUM SERUM 138 mmol/L (136-145); UREA NITROGEN, BLOOD 15 mg/dL (7-18)
[2021-03-30] MEDS: HYDROCODONE/APAP 5/325MG TABLET PO ONE (10:11)
--- NOTE | 2021-03-30 10:17 | NUR ---
urine collected and sent to the lab
--- NOTE | 2021-03-30 10:19 | NUR ---
covid swab done and sent to the lab
[2021-03-30 10:23] LABS: ACETAMINOPHEN 0 ug/ml (10-30); ALANINE AMINOTRANSFERASE 24 U/L (12-78); ALBUMIN 3.8 g/dL (3.4-5.0); ALCOHOL, BLOOD < 3 mg/dL (0-0); ALKALINE PHOSPHATASE 109 U/L (46-116); ASPARTATE AMINOTRANSFERASE 23 U/L (15-37); BILIRUBIN,DIRECT 0.1 mg/dL (0.0-0.2); BILIRUBIN,TOTAL 0.2 mg/dL (0.2-1.0); LIPASE 113 U/L (73-393); TOTAL PROTEIN, SERUM 7.3 g/dL (6.4-8.2)
--- NOTE | 2021-03-30 11:31 | NUR ---
SW referred pt. to [facility] [[address] [place] [id number] FAX:[phone]] for inpatient psychiatric treatment.
[2021-03-30 11:35] LABS: BILIRUBIN,URINE Negative (NEGATIVE); COLOR,URINE YELLOW (YELLOW); LEUKOCYTE ESTERASE ,URINE Negative (NEGATIVE); NITRITE, URINE Negative (NEGATIVE); PROTEIN,URINE Trace mg/dl (NEGATIVE); UGLUCOSE Negative (NEGATIVE); UROBILINOGEN,URINE 0.2 EU/dL (0.2)
[2021-03-30 11:36] LABS: BACTERIA,URINE Rare /HPF (None Seen); SQUAMOUS EPITHELIAL CELL,UR Rare /HPF (None Seen); WBC,URINE 0-2 /HPF (0-3)
--- NOTE | 2021-03-30 11:41 | NUR ---
SS Consult: SS Consult requested for SI, Addiction & Homelessness. The pt. is a 55-year old male who presents to the ED with C/O SI w/no plan. The pt. appears disheveld, A&O X3 and makes poor eye contact. Pt.'s mood is dysphoric, pt. is depressed with a flat affect. The pt. states he is experiencing SI with no plan. Per pt., he is experiencing AH that "talk about me". Pt. denies VH and denies HI. STEVE offered pt. voluntary admission to a psych facility for treatment and pt. is agreeable. Pt. states he has been experiencing homelessness since 2017. Pt. 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 Pt. states he has a Hx. of depression & paranoia and has been prescribed affexor & abilify. However, per pt. he has been med non-compliant for the past 5 months. Pt/ states his support system includes his sister, Silvia garay [phone]. Plan: STEVE referred pt. to [facility] [[address] [place] [address] FAX:[phone]] for inpatient psychiatric treatment. STEVE provided pt. with homeless, addiction and mental health resources and he accepted them : Substance Abuse resources provided included: [facility] Substance Abuse Self-Helpline (SASH) ; CRI -[facility] [address] [facility] [place] [address] ; [facility] [address] [facility] [address] ; [facility] [address] [facility] [address] ; [facility] [address] [facility] [address] ; [facility] [address] [facility] [address] ; [facility] [address] [facility] [place] [phone] ; [facility] Substance Abuse Helpline([facility] ; [facility] ; [facility] [place]; [facility] [place]; [facility] [place]; [facility] [place]; [facility]; [facility] [place]; [facility] [place]; [facility], [facility]. [facility]; Alcoholics Anonymous -SFV; Bc-Dual-Hqeorkd ; Marijuana Anonymous -SFV; Narcotics Anonymous www.na.org; Year-round shelters: [facility] [address] [place] [address] ; [facility] [address] [place] [address]; [place] [facility] Lucobgz[address]65 [facility] [address] Winter Shelters: [facility] Provider: Mary[facility] Address: [address] [facility] [facility] [place], [address] # of Beds: 47 Population Served: [facility] 6 | [facility] Sheila Taylor [place] Provider: [facility] Address: [address] [facility], [address] # of Beds: 66 Population Served: Amol Decision Curve [place] Provider: First to Serve Address: [address] [facility], [address] # of Beds: 56 Population Served: Amol Maki Provider: SSG/ [facility] Address: [address] [facility], [address] # of Beds: 49 Population Served: [facility] SPA 8 | [place] Provider: First to Serve Address: [facility]5 [facility] Gill # of Beds: 37 Population Served: Coed Hygiene: [facility]: [address] [place] ; [facility] [facility] [address] [facility] ; [facility] 2464 [facility] . Food Resources: [place] [facility] at [facility]- [address] [place]; Meet Each Need with Dignity ([facility]) [address] [facility] [place]; [facility] 9927 [facility]; [facility] 2[address] [facility]. Mental Health resources provided: [facility] [address] [place], [place] [id number] ; [facility] [address] [facility] [address], [place], [place] [id number] ; [facility] [address] [place] [address] ; [facility] [address] [place], [place] [id number] Healthcare Clinics: [facility] [address] [facility], [address] [place]. [place] ; [facility] [address] [facility] [address] [place] [address]; [facility] [address] [facility]. [place] [phone] Counseling--Outpatient [facility] [address] [facility], [address] [place], [place] [address] (Specializes in in-depth psychotherapy for emotional distress: anxiety, depression, interpersonal conflicts, life transitions, childhood abuse) [facility] [address] [place], [place] [address] (Assist with solving problem marital difficulties, separation & divorce, aging parents, & grief, chronic & terminal illness) [facility] [address] [place], [place] [address] (Deal with loss & grief, anxiety, marital difficulties) Homebound/Mental Health Services [address], [address] [place], [place] [address] (Provide in-home mental services to people who are incapable of leaving their homes) [facility] Needs of the Elderly Senior Service/Resource Center [address] [place], [place] [id number] [facility] [address] [place], [place] [id number] PSYCHIATRIC OUTPATIENT SERVICES [facility] Partial Hospitalization and Intensive Outpatient Program (Managed Care and Amanda Only)[address] Naresh Gonzales. [facility] [phone] [facility] Partial Hospitalization and Outpatient Ouphpmq[address] [facility]. [address] [place], [place] [phone] [facility] Partial Hospitalization and Outpatient Awrhoiv[address] Joseph[address] [place], [place] [phone] JONATHAN [facility] [id number] [place], [place] [phone] [facility] Jonathan rodney Partial Hospitalization and Outpatient Mouxdrs[address]258 Emelita StSharla [place], [phone] Addendum: 03/30/21 at 1408 by BREANNA Pt. signed homeless waiver and it was placed in the chart.
--- NOTE | 2021-03-30 13:32 | NUR ---
Patient is resting comfortably in bed with eyes closed. Easily aroused. VSS
--- NOTE | 2021-03-30 15:36 | NUR ---
Patient is resting comfortably in bed with eyes closed. Easily aroused. VSS
[2021-03-30 17:45] VITALS: BP 134/96
--- NOTE | 2021-03-30 17:45 | NUR ---
Patient is resting comfortably in bed with eyes closed. Easily aroused. VSS
--- NOTE | 2021-03-30 17:52 | NUR ---
[facility] REPORT GIVEN TO JOHN KATZ SUP. WILL CALL FOR TRANSPORT.
--- NOTE | 2021-03-30 18:01 | NUR ---
CALLED [facility] FOR TRANSPORT TO REPLACED BY [facility]. ETA 45 MINUTES.
--- NOTE | 2021-03-30 18:57 | NUR ---
REPORT GIVEN TO [facility] FOR DONNA
== END 2021-03-30 18:58 ==
LOC: ER 09:36
DX: F20.9 Schizophrenia, unspecified (principal); F32.9 Major depressive disorder, single episode, unspecified; R11.0 Nausea; Z59.0 Homelessness; Z20.822 Contact with and (suspected) exposure to COVID-19
CPT/HCPCS: 36415; 80048; 80076; 80143; 80307; 80320; 81001; 83690; 85025; 87426; 99285; C9803; G0480

== ENCOUNTER 2021-04-07 22:32 | Emergency (ER) | payer OTHER ==
[~2021-04-07] VITALS: Ht 162.6 cm; Wt 74.8 kg
--- NOTE | 2021-04-07 22:57 | NUR ---
MED CLEARANCE FOR VOL PSYCH, DENIES SI/HI, FEELS DEPRESSED AND PARANOID, PT TO BED 15, AAOX4, DENIES ANY SOB. VSS PENDING ER PROVIDER DINA
[2021-04-07 23:46] LABS: BASOPHILS # (AUTO) 0.1 K/uL (0.0-0.2); BASOPHILS % (AUTO) 0.8 % (0.0-2.0); EOSINOPHILS % (AUTO) 1.5 % (0.0-6.0); HEMATOCRIT 46 % (39-51); HEMOGLOBIN 15.6 g/dL (13.5-17.5); LYMPHOCYTES # (AUTO) 1.2 K/uL (0.8-4.8); LYMPHOCYTES % (AUTO) 15.3 % (20.0-44.0); MEAN CORPUSCULAR HGB CONC 34 g/dl (31.0-36.0); MEAN CORPUSCULAR VOLUME 92 fL (80-96); MONOCYTES # (AUTO) 0.8 K/uL (0.1-1.30); MONOCYTES % (AUTO) 9.8 % (2.0-12.0); NEUTROPHILS # (AUTO) 5.9 K/uL (1.8-8.9); NEUTROPHILS % (AUTO) 72.6 % (43.0-81.0); PLATELET COUNT (AUTO) 288 K/uL (150-450); WHITE BLOOD COUNT (AUTO) 8.1 K/uL (4.3-11.0)
[2021-04-08 00:01] LABS: CALCIUM, SERUM 8.5 mg/dL (8.5-10.1); CARBON DIOXIDE 29 mmol/L (21-32); CHLORIDE 100 mmol/L (98-107); CREATININE 0.8 mg/dL (0.6-1.3); GLUCOSE 113 mg/dL (74-106); POTASSIUM 3.8 mmol/L (3.5-5.1); SODIUM SERUM 138 mmol/L (136-145); UREA NITROGEN, BLOOD 16 mg/dL (7-18)
[2021-04-08 00:21] LABS: ALANINE AMINOTRANSFERASE 34 U/L (12-78); ALBUMIN 4.1 g/dL (3.4-5.0); ALCOHOL, BLOOD < 3 mg/dL (0-0); ALKALINE PHOSPHATASE 144 U/L (46-116); ASPARTATE AMINOTRANSFERASE 39 U/L (15-37); BILIRUBIN,DIRECT 0.1 mg/dL (0.0-0.2); BILIRUBIN,TOTAL 0.5 mg/dL (0.2-1.0); TOTAL PROTEIN, SERUM 8.6 g/dL (6.4-8.2)
[2021-04-08 00:22] LABS: ACETAMINOPHEN < 2 ug/ml (10-30)
[2021-04-08 00:56] LABS: BILIRUBIN,URINE Negative (NEGATIVE); COLOR,URINE YELLOW (YELLOW); LEUKOCYTE ESTERASE ,URINE Negative (NEGATIVE); NITRITE, URINE Negative (NEGATIVE); PH,URINE 5.5 (5.0-8.0); PROTEIN,URINE 100 mg/dl (NEGATIVE); UGLUCOSE Negative (NEGATIVE); UROBILINOGEN,URINE 0.2 EU/dL (0.2)
--- NOTE | 2021-04-08 02:34 | NUR ---
PT ACCEPTED TO [facility] BY DR GONZALEZ. UNIT 2. # FOR REPORT [phone].
--- NOTE | 2021-04-08 02:40 | NUR ---
[facility] CALL THE CAR CALLED FOR TRANSPORT. TRIP# [id number]
--- NOTE | 2021-04-08 02:48 | NUR ---
[facility] ETA [id number]
--- NOTE | 2021-04-08 03:18 | NUR ---
[facility] CALLED FOR TRANSPORT. NO AVAILABLE. TRANSPORT.
--- NOTE | 2021-04-08 05:37 | NUR ---
[facility] CALLED FOR REPORT. REQUESTING TO REPORT AFTER CHANGE OF SHIFT.
--- NOTE | 2021-04-08 07:23 | NUR ---
report given to Eliceo AGGARWAL for alyssa.
--- NOTE | 2021-04-08 11:00 | NUR ---
The patient is transfered to [facility] in stable condition via arrange transpo.
[2021-04-08 11:16] VITALS: BP 147/79
== END 2021-04-08 11:17 ==
LOC: ER 22:32
DX: F23 Brief psychotic disorder (principal); F22 Delusional disorders; F15.10 Other stimulant abuse, uncomplicated; Z20.822 Contact with and (suspected) exposure to COVID-19
CPT/HCPCS: 36415; 80048; 80076; 80143; 80307; 80320; 81003; 85025; 87426; 99285; C9803; G0480

== ENCOUNTER 2022-11-02 01:09 | Emergency (ER) | payer OTHER ==
[~2022-11-02] VITALS: Ht 162.6 cm; Wt 74.8 kg
--- NOTE | 2022-11-02 03:37 | NUR ---
[id number]. SEEKING VOLUNTARY PSYCH ADMISSION FOR [place], FOR MEDICAL CLEARANCE. PATIENT IS AMBULATORY, ABLE TO MAKE NEEDS KNOWN. PLACED IN ROOM 18.
--- NOTE | 2022-11-02 04:12 | NUR ---
SOIL SCIENCE TEACHER AT BEDSIDE TO DRAW BLOODS
--- NOTE | 2022-11-02 04:14 | NUR ---
COVID SWAB DONE AND SENT TO LAB
[2022-11-02 04:33] LABS: BASOPHILS % (AUTO) 0.2 % (0.0-2.0); EOSINOPHILS % (AUTO) 0.3 % (0.0-6.0); HEMATOCRIT 44 % (39-51); HEMOGLOBIN 14.6 g/dL (13.5-17.5); LYMPHOCYTES % (AUTO) 10.2 % (20.0-44.0); MEAN CORPUSCULAR HGB CONC 33 g/dl (31.0-36.0); MEAN CORPUSCULAR VOLUME 91 fL (80-96); MONOCYTES # (AUTO) 0.6 K/uL (0.1-1.30); MONOCYTES % (AUTO) 6.1 % (2.0-12.0); NEUTROPHILS # (AUTO) 7.8 K/uL (1.8-8.9); NEUTROPHILS % (AUTO) 83.2 % (43.0-81.0); PLATELET COUNT (AUTO) 312 K/uL (150-450); RED BLOOD CELL COUNT(AUTO) 4.85 MIL/uL (4.5-6.0); WHITE BLOOD COUNT (AUTO) 9.3 K/uL (4.3-11.0)
[2022-11-02 04:44] LABS: CALCIUM, SERUM 8.9 mg/dL (8.5-10.1); CARBON DIOXIDE 26 mmol/L (21-32); CHLORIDE 104 mmol/L (98-107); CREATININE 0.8 mg/dL (0.6-1.3); GLUCOSE 104 mg/dL (74-106); POTASSIUM 3.9 mmol/L (3.5-5.1); SODIUM SERUM 138 mmol/L (136-145); UREA NITROGEN, BLOOD 15 mg/dL (7-18)
[2022-11-02 04:50] LABS: ALANINE AMINOTRANSFERASE 30 U/L (12-78); ALBUMIN 3.9 g/dL (3.4-5.0); ALCOHOL, BLOOD < 3 mg/dL (0-0); ALKALINE PHOSPHATASE 134 U/L (46-116); ASPARTATE AMINOTRANSFERASE 33 U/L (15-37); BILIRUBIN,DIRECT 0.2 mg/dL (0.0-0.2); BILIRUBIN,TOTAL 0.4 mg/dL (0.2-1.0); TOTAL PROTEIN, SERUM 8.2 g/dL (6.4-8.2)
[2022-11-02 07:21] LABS: BILIRUBIN,URINE 1+ (NEGATIVE); COLOR,URINE YELLOW (YELLOW); LEUKOCYTE ESTERASE ,URINE NEGATIVE (NEGATIVE); NITRITE, URINE NEGATIVE (NEGATIVE); PROTEIN,URINE NEGATIVE (NEGATIVE); UGLUCOSE NEGATIVE (NEGATIVE); UROBILINOGEN,URINE 0.2 EU/dL (0.2)
[2022-11-02 07:36] LABS: BACTERIA,URINE Rare /HPF (None Seen); RBC,URINE 0-2 /HPF (0-2); SQUAMOUS EPITHELIAL CELL,UR None Seen /HPF (None Seen)
--- NOTE | 2022-11-02 08:20 | NUR ---
FAXED CLINICALS TO [facility].
--- NOTE | 2022-11-02 08:50 | NUR ---
REFAXED LABS TO [facility]
[2022-11-02 10:12] VITALS: BP 126/78
[2022-11-02] MEDS ORDERED: KETOROLAC TROMETHAMINE 15 MG/ML VIAL ONE (10:16)
--- NOTE | 2022-11-02 10:16 | NUR ---
TRANSPORTATION WAITING FOR PATIENT. BELONGINGS GIVEN TO PATIENT
--- NOTE | 2022-11-02 10:22 | NUR ---
PICKED UP BY [facility] TRANSPORT PERSONNEL IN STABLE CONDITION. ALL BELONGINGS GIVEN BACK TO PATIENT. CLINICALS PROVIDED TO BE GIVEN TO [facility].
[2022-11-02] MEDS ORDERED: KETOROLAC TROMETHAMINE INJ 30 MG/ML VIAL IM ONE (10:30)
== END 2022-11-02 10:28 ==
LOC: ER 01:19
DX: F22 Delusional disorders (principal); Z20.822 Contact with and (suspected) exposure to COVID-19; F20.9 Schizophrenia, unspecified; Z59.00 Homelessness unspecified; F19.10 Other psychoactive substance abuse, uncomplicated; F29 Unspecified psychosis not due to a substance or known physiological condition
CPT/HCPCS: 99285; 96372; 85025; 80048; 87086; 80076; 81001; 36415; 87426; 80143; 80320; 80307; J1885; C9803; G0480

== ENCOUNTER 2022-12-20 18:24 | Emergency (ER) | payer OTHER ==
[~2022-12-20] VITALS: Ht 165.1 cm; Wt 68.0 kg
[2022-12-20] MEDS ORDERED: IOHEXOL-300 100 ML VIAL IV ONE (18:48)
[2022-12-20] MEDS ORDERED: CT SWABBABLE VALVE TRANS SET 1 EA INFUS.SET MC ONE (18:49)
[2022-12-20] MEDS ORDERED: IV NS 0.9% 250 ML IV ONE (18:49)
[2022-12-20] MEDS ORDERED: IV NS 0.9% 1,000 ML BAG IV ONE (19:00)
[2022-12-20 19:35] LABS: CALCIUM, SERUM 8.6 mg/dL (8.5-10.1); CREATININE 0.8 mg/dL (0.6-1.3); POTASSIUM 3.5 mmol/L (3.5-5.1)
[2022-12-20 19:41] LABS: ALBUMIN 3.7 g/dL (3.4-5.0); BILIRUBIN,DIRECT 0.1 mg/dL (0.0-0.2); BILIRUBIN,TOTAL 0.2 mg/dL (0.2-1.0); TOTAL PROTEIN, SERUM 7.9 g/dL (6.4-8.2)
[2022-12-20 20:19] LABS: BASOPHILS % (AUTO) 0.7 % (0.0-2.0); HEMATOCRIT 45 % (39-51); HEMOGLOBIN 14.9 g/dL (13.5-17.5); LYMPHOCYTES # (AUTO) 1.7 K/uL (0.8-4.8); MEAN CORPUSCULAR HGB CONC 33 g/dl (31.0-36.0); MEAN CORPUSCULAR VOLUME 90 fL (80-96); MONOCYTES # (AUTO) 0.4 K/uL (0.1-1.30); MONOCYTES % (AUTO) 5.9 % (2.0-12.0); NEUTROPHILS # (AUTO) 3.7 K/uL (1.8-8.9); NEUTROPHILS % (AUTO) 62.4 % (43.0-81.0); PLATELET COUNT (AUTO) 272 K/uL (150-450); RED BLOOD CELL COUNT(AUTO) 4.99 MIL/uL (4.5-6.0); WHITE BLOOD COUNT (AUTO) 5.9 K/uL (4.3-11.0)
[2022-12-20 21:38] VITALS: BP 157/96
== END 2022-12-20 21:39 | disposition home or self-care (01) ==
LOC: ER 18:28
DX: S01.81XA Laceration without foreign body of other part of head, initial encounter (principal); F20.9 Schizophrenia, unspecified; F32.A Depression, unspecified; F17.200 Nicotine dependence, unspecified, uncomplicated; Z60.2 Problems related to living alone; Z59.00 Homelessness unspecified; V09.9XXA Pedestrian injured in unspecified transport accident, initial encounter; Y93.89 Activity, other specified; Y92.89 Other specified places as the place of occurrence of the external cause; Y99.8 Other external cause status
CPT/HCPCS: 99285; 12014; 96360; 72125; 71260; 70450; 74177; 85025; 80048; 83690; 80076; 36415; 80320; J7030; J7050; A6403; Q9967; G0480

== ENCOUNTER 2023-04-30 05:32 | Emergency (ER) | payer OTHER ==
[~2023-04-30] VITALS: Ht 162.6 cm; Wt 63.5 kg
[2023-04-30] MEDS ORDERED: HYDROCODONE/APAP 5/325MG TABLET PO ONE (07:00)
[2023-04-30] MEDS ORDERED: HYDROCODONE/APAP 5/325MG TABLET ONE (07:12)
[2023-04-30] MEDS ORDERED: HYDR-4303 PO (07:49)
[2023-04-30] MEDS ORDERED: CYCL5TAB PO (07:49)
[2023-04-30] MEDS ORDERED: IBUP-1955 PO (07:49)
[2023-04-30 08:13] VITALS: BP 126/85; TEMP 208.9; O2SAT 97
== END 2023-04-30 08:14 | disposition home or self-care (01) ==
LOC: ER 05:34
DX: S22.41XA Multiple fractures of ribs, right side, initial encounter for closed fracture (principal); J98.11 Atelectasis; J90 Pleural effusion, not elsewhere classified; F20.9 Schizophrenia, unspecified; F32.A Depression, unspecified; F17.200 Nicotine dependence, unspecified, uncomplicated; Z98.890 Other specified postprocedural states; Z60.2 Problems related to living alone; W17.89XA Other fall from one level to another, initial encounter; Y93.89 Activity, other specified; Y92.89 Other specified places as the place of occurrence of the external cause; Y99.8 Other external cause status
CPT/HCPCS: 71250-TC

== ENCOUNTER 2025-07-31 22:39 | Emergency (ER) | payer OTHER ==
[~2025-07-31] VITALS: Ht 170.2 cm; Wt 77.1 kg
[~2025-07-31 22:39] MED LIST changes: -CHLO25CA22 PO; +CYCL5TAB PO; -FOLI1TAB16 PO; +HYDR-4303 PO; +IBUP-1955 PO; -THIA100T13 PO
[2025-07-31] MEDS ORDERED: FAMOTIDINE/PF INJ 20 MG/2 ML VIAL IV ONE (23:41)
[2025-07-31] MEDS ORDERED: ONDANSETRON HCL/PF 4 MG/2 ML VIAL ONE (23:41)
[2025-07-31 23:51] LABS: CALCIUM, SERUM 9.0 mg/dL (8.5-10.1); CREATININE 0.7 mg/dL (0.6-1.3); SODIUM SERUM 137.0 mmol/L (136-145); UREA NITROGEN, BLOOD 19.0 mg/dL (7-18)
[2025-07-31 23:54] LABS: PLATELET COUNT (AUTO) 211 K/uL (150-450); RED BLOOD CELL COUNT(AUTO) 5.44 MIL/uL (4.5-6.0); RED CELL DISTRIBUTION WIDTH 13.7 % (11.5-15.0); WHITE BLOOD COUNT (AUTO) 12.2 K/uL (4.3-11.0)
[2025-07-31 23:57] LABS: ASPARTATE AMINOTRANSFERASE 31.0 U/L (15-37); TOTAL PROTEIN, SERUM 9.4 g/dL (6.4-8.2)
[2025-07-31] MEDS: IV NS 0.9% 1,000 ML BAG IV ONE (23:57)
[2025-07-31] MEDS: ONDANSETRON HCL/PF 4 MG/2 ML VIAL IVP ONE (23:57)
[2025-07-31] MEDS: FAMOTIDINE/PF INJ 20 MG/2 ML VIAL IV ONE (23:57)
[2025-08-01] MEDS ORDERED: ONDA4TAB5 PO (00:15)
[2025-08-01 01:05] VITALS: BP 135/78; TEMP 98.7; O2SAT 97
== END 2025-08-01 01:05 | disposition home or self-care (01) ==
LOC: ER 22:40
DX: R11.10 Vomiting, unspecified (principal); F20.9 Schizophrenia, unspecified; F17.200 Nicotine dependence, unspecified, uncomplicated; Z59.00 Homelessness unspecified; Z98.890 Other specified postprocedural states; Z60.2 Problems related to living alone
CPT/HCPCS: 99284; 96374; 96361; 96375; 85025; 80048; 83690; 80076; 36415; J1308; J2405